=== PATIENT | female | born 1995 ===

== ENCOUNTER 2018-04-03 23:24 | Emergency (ER) | payer SELFPAY ==
--- NOTE | 2018-04-04 00:39 | OBHP ---
Datetime: 04/04/2018 00:33 IP Adm Impression: , intrauterine IP Admit Plan: Discharge home Admit Comment, IP Provider: @ 26.4 wks reports pnc in [place] uncompliated (no recrods) reprots r ight sided hip pain on and off and reprots needs a letter in regards to so she can apply fo r insurance and get prental care. pt dnie slof, vb, ctx, +FM. pt deneis any bowel or bladder complain ts. OB: P0 SURGICAL SCHEDULER: dnies PMH: dneis PSH: denies FHX: denies MEDS:PNV NKDA SHDX: negaive etoch/tobacc/durgs A/P G1P) @ 26.3 wks GA wiht likey sciatica -tyoenol prn pain -advsid stretching, exericse, warm shower -referral to clinic re: improtance of acre Pelvic Type - PN: Adequate Extremities - PN: Normal Abdomen - PN: Normal Back - PN: Normal Breast - PN: Not Done Lungs - PN: Normal Heart - PN: Normal Thyroid - PN: Not Done Neurologic - PN: Normal HEENT - PN: Normal General - PN: Normal Presentation-Admit: Vertex FHR - Baseline A Provider: 145 Membranes, Provider: Intact Contraction Comments Provider: none Gestation - Est Wks by US: 26.4 EGA AdmitDate IP: 26.3 Vital Signs Provider: Reviewed; Within Normal Limits IP Chief Complaint: Other NICHD Variability Prov Fetus A: Moderate 6-25bpm FHR Category Provider Fetus A: Category I Dilatation, Provider: 0 Effacement, Provider: 0 Station, Provider: -3 Genitourinary Exam: Normal DTRs - PN: Normal
== END 2018-04-04 00:45 | disposition home or self-care (01) ==
LOC: C.EROB 23:24
DX: O26.92 Pregnancy related conditions, unspecified, second trimester (principal); M25.551 Pain in right hip; Z3A.26 26 weeks gestation of pregnancy

== ENCOUNTER 2018-06-21 08:15 | Inpatient (IN) | payer MEDICAID ==
[2018-06-21 08:52] VITALS: BMI 26.8
[2018-06-21 09:54] LABS: BASO # 0.1 K/uL (0.0-0.2); BASO % 0.5 % (0.0-2.0); EOS # 0.1 K/uL (0.0-0.7); EOS % 0.8 % (0.0-4.0); HEMOGLOBIN 12.8 g/dL (11.0-16.0); LYMPH # 2.2 K/uL (1.0-4.3); LYMPH % 18.4 % (20.0-40.0); MEAN CELL VOLUME 85.7 fL (81.0-99.0); MEAN CORPUSCULAR HEMOGLOBIN 29.5 pg (27.0-31.0); MEAN CORPUSCULAR HGB CONC 34.4 g/dL (33.0-37.0); MEAN PLATELET VOLUME 8.5 fL (7.2-11.7); MONO # 0.7 K/uL (0.0-0.8); MONO % 5.5 % (0.0-10.0); NEUT # 8.8 K/uL (1.8-7.0); NEUT % 74.8 % (50.0-75.0); RBC 4.33 Mil/uL (3.80-5.20); RED CELL DISTRIBUTION WIDTH 13.5 % (11.5-14.5); WHITE BLOOD COUNT 11.8 K/uL (4.8-10.8)
[2018-06-21] MEDS ORDERED: Lactated Ringer's 1,000 ML IV ONE (10:30)
[2018-06-21] MEDS ORDERED: Bupivacaine HCl/FentaNYL Cit 100 ML EPI ONE (11:07)
--- NOTE | 2018-06-21 15:17 | OBHP ---
Datetime: 06/21/2018 10:00 IP Adm Impression: Term, intrauterine ; Intact Membranes IP Admit Plan: Admit to unit; Initiate labor protocol Admit Comment, IP Provider: 21 yo female G1 with an IUP at 37 5/7 weeks and presented with c/o of co ntractions since this AM and very painful and almost in tears, Admitted to adequate movement an d denied LOF or vaginal bleeding. Will admit in early labor and anticipate a vaginal delivery. Pelvic Type - PN: Adequate Extremities - PN: Normal Abdomen - PN: Normal Back - PN: Normal Breast - PN: Not Done Lungs - PN: Normal Heart - PN: Normal Thyroid - PN: Normal Neurologic - PN: Normal HEENT - PN: Normal General - PN: Normal Presentation-Admit: Vertex FHR - Baseline A Provider: 140 Membranes, Provider: Intact Contraction Comments Provider: 1-2 mins Gestation - Est Wks by US: 37 5/7 weeks EGA AdmitDate IP: 37.5 Vital Signs Provider: Reviewed; Within Normal Limits IP Chief Complaint: Uterine contractions NICHD Variability Prov Fetus A: Moderate 6-25bpm NICHD Accel Fetus A IP Provider: 10X10 FHR Category Provider Fetus A: Category I NICHD Decel Fetus A IP Provider: None Dilatation, Provider: 1-2 Effacement, Provider: 80 Station, Provider: -3 Genitourinary Exam: Normal DTRs - PN: Normal
[2018-06-21 15:20] LABS: ALB/GLOB RATIO 1.3 (1.0-2.1); ALBUMIN 3.9 g/dL (3.5-5.0); BLOOD UREA NITROGEN 5 mg/dL (7-17); GFR AFRICAN-AMERICAN > 60; GFR NON-AFRICAN AMERICAN > 60
[2018-06-21 15:21] LABS: ALT/SGPT 15 U/L (9-52); AST/SGOT 19 U/L (14-36)
[2018-06-21 15:26] LABS: SQUAMOUS EPITHIAL 4 /hpf (0-5); URINE BACTERIA RARE (<OCC); URINE BILIRUBIN NEGATIVE (NEGATIVE); URINE CLARITY Clear (Clear); URINE COLOR Yellow (YELLOW); URINE GLUCOSE (UA) NORMAL (Normal); URINE LEUKOCYTE ESTERASE NEG Leu/uL (Negative); URINE PROTEIN NEGATIVE (NEGATIVE); URINE UROBILINOGEN NORMAL mg/dL (0.2-1.0)
[2018-06-21 15:27] LABS: URINE BLOOD 2+ (NEGATIVE)
--- NOTE | 2018-06-21 15:45 | OBADHP ---
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 Denies MATA, BV or EP Will check labs and treat accordingly. Pelvic Type - PN: Adequate Extremities - PN: Normal Abdomen - PN: Normal Back - PN: Normal Breast - PN: Not Done Lungs - PN: Normal Heart - PN: Normal Thyroid - PN: Normal Neurologic - PN: Normal HEENT - PN: Normal General - PN: Normal Presentation-Admit: Vertex Amniotic Fluid Color, Provider: Clear Membranes, Provider: Bulging Contraction Comments Provider: 2-3 Vital Signs Provider: Reviewed; Within Normal Limits IP Chief Complaint: Uterine contractions NICHD Variability Prov Fetus A: Moderate 6-25bpm NICHD Accel Fetus A IP Provider: 10X10 NICHD Decel Fetus A IP Provider: None Dilatation, Provider: 2-3 Effacement, Provider: 100 Station, Provider: -2 Genitourinary Exam: Normal DTRs - PN: Normal EGA AdmitDate IP: 37.5 IP Adm Impression: Term, intrauterine ; Intact Membranes IP Admit Plan: Admit to unit; Initiate labor protocol Datetime: 06/21/2018 10:00 FHR - Baseline A Provider: 140 Gestation - Est Wks by US: 37 5/7 weeks FHR Category Provider Fetus A: Category I
--- NOTE | 2018-06-21 15:53 | OBPN ---
Datetime: 06/21/2018 14:35 IP Progress Impression Other: Slow Progression of labor IP Procedures: Artificial ROM; Scalp Electrode IP Progress Plan: Continue present management; Augmentation Contraction Comments Provider: Q 1-2 FHR - Baseline A Provider: 150-160 Presentation-Admit: Vertex IP Progress Note Comment: AROM wit cler fluid and scalp lead appied Anesthesia aware of Low Blood Pressure UC's spread out some what and will start Pitocin for augmentation of labor Hope for a vaginal Delivery Vital Signs Provider: Reviewed Vital Signs Provider Details: LOW BP after Epidural NICHD Accel Fetus A IP Provider: 10X10 FHR Category Provider Fetus A: Category I NICHD Variability Prov Fetus A: Moderate 6-25bpm Dilatation, Provider: 2-3 Effacement, Provider: 100 Station, Provider: -2 NICHD Decel Fetus A IP Provider: Variable Datetime: 06/21/2018 11:30 Membranes, Provider: Bulging Amniotic Fluid Color, Provider: Clear Datetime: 06/21/2018 10:00 Gestation - Est Wks by US: 37 5/7 weeks
[2018-06-21] MEDS ORDERED: Oxytocin 20 units in LR 2,000 ML IV ONE (16:04)
[2018-06-21] MEDS ORDERED: Sodium Citrate/Citric Acid 15 ml Sol ONE (16:04)
[2018-06-21] MEDS ORDERED: ceFAZolin IV 2 gm in Dextrose 2 GM/50 ML BAG IVPB ONE (16:04)
[2018-06-21] MEDS ORDERED: Oxytocin 30 UNIT 30 UNITS/500 ML BAG IV ONE ×2 (16:45→18:36)
[2018-06-21] MEDS ORDERED: Oxytocin 30 UNIT 30 UNITS/500 ML BAG IV SCH (17:00)
[2018-06-21] MEDS ORDERED: Lidocaine 2% MPF (5 ml) Inj ONE ×3 (17:12→18:02)
[2018-06-21] MEDS ORDERED: Benzocaine/Menthol 20%-0.5% Topical Spray (60 ml) TOP PRN (18:36)
[2018-06-21] MEDS ORDERED: Oxycodone/Acetaminophen 5/325 mg Tab PO PRN (18:36)
--- NOTE | 2018-06-21 19:14 | OBDS ---
DELIVERY PERSONNEL Delivery Doctor: Dr. Feliz Tanker Driver: Carole Freire RN Anesthesiologist: Dr. Swift Resident: Jonathon Andrade MATERNAL INFORMATION Delivery Anesthesia: Epidural Medications in Delivery: pitocin 30mu in 500LR Estimated Blood Loss (ml): 200 Placenta Cultured: No Maternal Complications: None Provider Comments: of a viable female from GIBRAN position and over an intact perineum. Apg ars 9_9 at 1 and 5 mins respectively and BW 5lbs, 15 oz. Cord next to baby's head and around baby's a rm x 1. Placenta delivered spontaneously and intact with 3 vessel cord. Cord Ph 7.3/ EBL 200 mls 2nd degree vaginal and Perineal tear repaired with 2-0 Vicryl and 2% Lidocaine for Local Aneshesia Pt and both tolerated the procedure well and remained in Stable and Satisfactory condition . LABOR SUMMARY EDC: 07/07/2018 00:00 No. Babies in Womb: 1 Attempted: No Labor Anesthesia: Epidural LABOR INFORMATION Onset of Labor: 06/21/2018 08:53 Complete Dilatation: 06/21/2018 17:12 Oxytocin: Augmentation Group B Beta Strep: Negative Reason Steroids Not Administered: Not Applicable MEMBRANES Membranes Rupture Method: Artificial Rupture of Membranes: 06/21/2018 14:27 Length of Rupture (hrs): 3.37 Amniotic Fluid Color: Bloody Amniotic Fluid Amount: Small Amniotic Fluid Odor: None STAGES OF LABOR Stage 1 hrs: 8 Stage 1 min: 19 Stage 2 hrs: 0 Stage 2 min: 37 Stage 3 hrs: 0 Stage 3 min: 8 Total Time in Labor hrs: 9 Total Time in Labor min: 4 VAGINAL DELIVERY Episiotomy: None Laceration Extension: Second Degree Laceration Type: Perineal; Vaginal Laceration Repair: Yes Laceration Repair Note: Laceration repaired with 2-0 Vicryl with 2% Lidocaine injection and no compl ications. Pt tolerated the procedure well. Initial Vag Sponge Count: 10 Initial Vag Sharps Count: 1 BABY A INFORMATION Infant Delivery Date/Time: 06/21/2018 17:49 Method of Delivery: Vaginal Born in Route : No : N/A Forceps: N/A Vacuum Extraction: N/A Shoulder Dystocia : No SHOULDER DYSTOCIA BABY A Infant Delivery Date/Time: 06/21/2018 17:49 PRESENTATION/POSITION BABY A Presentation: Cephalic Cephalic Presentation: Vertex Vertex Position: Left Occipital Anterior Breech Presentation: N/A PLACENTA INFORMATION BABY A Placenta Delivery Time : 06/21/2018 17:57 Placenta Method of Delivery: Spontaneous Placenta Status: Delivered SCORES BABY A Heart Rate 1 min: >100 bpm Resp Effort 1 min: Good Cry Reflex Irritability 1 min: Cough or Sneeze or Pulls Away Muscle Tone 1 min: Active Motion Color 1 min: Body Kermit, Extremities Blue SCORE 1 MIN: 9 Heart Rate 5 min: >100 bpm Resp Effort 5 min: Good Cry Reflex Irritability 5 min: Cough or Sneeze or Pulls Away Muscle Tone 5 min: Active Motion Color 5 min: Body Kermit, Extremities Blue SCORE 5 MIN: 9 INFANT INFORMATION BABY A Gestational Age at Delivery: 37.5 Gestational Status: Term Outcome : Liveborn Condition : Stable Sex: Female IDENTIFICATION/MEDS BABY A ID Band Number: [id number] ID Band Location: Left Leg; Left Arm Sensor Applied: Yes Sensor Number: [id number] Sensor Location : Cord Clamp WEIGHT/LENGTH BABY A Birthweight (gms): 2695 Weight (lb): 5 Infant Weight (oz): 15 Infant Length Inches: 18.50 Infant Length cms: 47.0 CORD INFORMATION BABY A No. Cord Vessels: 3 Nuchal Cord Other: loose cord around hand Cord Blood Taken: Yes Suction: Mouth; Nose ASSESSMENT BABY A Complications: None Physical Findings at Delivery: Within Normal Limits Physical Findings Other: Dr. Elhagaly present Infant Respirations: Appears Normal [employer] Consultant/ALS Called : No Infant Care By: Andres Herrera Transferred To: Remains with Mother
[2018-06-22 07:18] LABS: BASO % 0.4 % (0.0-2.0); EOS % 0.3 % (0.0-4.0); HEMOGLOBIN 11.1 g/dL (11.0-16.0); LYMPH % 14.9 % (20.0-40.0); MEAN CELL VOLUME 86.3 fL (81.0-99.0); MEAN CORPUSCULAR HEMOGLOBIN 29.5 pg (27.0-31.0); MEAN CORPUSCULAR HGB CONC 34.2 g/dL (33.0-37.0); MEAN PLATELET VOLUME 8.5 fL (7.2-11.7); MONO # 0.8 K/uL (0.0-0.8); MONO % 6.1 % (0.0-10.0); NEUT # 10.5 K/uL (1.8-7.0); NEUT % 78.3 % (50.0-75.0); RBC 3.76 Mil/uL (3.80-5.20); RED CELL DISTRIBUTION WIDTH 13.7 % (11.5-14.5); WHITE BLOOD COUNT 13.4 K/uL (4.8-10.8)
[2018-06-22] MEDS: Multiple Vitamins Tab PO SCH (09:19)
[2018-06-22 10:09] VITALS: RESP 18
--- NOTE | 2018-06-22 13:30 | OBPPN ---
Datetime: 06/22/2018 13:09 PP Pain Prov: Within normal limits PP Nausea Prov: Denies PP Flatus Prov: Yes PP BM Prov: Yes PP Breasts Prov: Normal PP Heart Prov: Normal PP Lungs Prov: Normal PP Abdomen/Uterus Prov: Normal PP Lochia Prov: Normal PP Vulva/Perineum Prov: Normal PP CVA Tenderness Prov: Normal PP Extremities Prov: Normal PP C/S Incision Prov: Not Applicable PP Progress Prov: Normal PP Comments Phys Exam Prov: Abdomen: Soft. Non distended. Fundus firm, mobile, non tender, 2 FB belo w umbilicus. Mild lochia rubra. Extremities: no calf tenderness, All other systems reviewed and are negative PP Impression Prov: Normal progression PP Plan Prov: Continue present management PP Progress Note Prov: Patient received in room 459, walking around. exclusively. Vag inal discomfort from laceration repair is improved with motrin. Denies dizziness, lightheadedness, na usea or vomiting. P.E.: as above. WD in NAD. Awake, alert, oriented to time, person and place. Pleasant and coope rative - PPD#1 H/H 11.1/32.4 Rh(+) Assessment: 22 y.o. P1, S/P with laceration repair. Afebrile, vital signs stable. H/H wnl. Cli nically stable. Plan: 1) Continue present managemnt 2) Anticipate vaginal delivery Vital Signs Provider PP: Reviewed; Within Normal Limits
[2018-06-23] MEDS: Multiple Vitamins Tab PO SCH (10:17)
[2018-06-23] MEDS ORDERED: Hydrocortisone 2.5% Rectal Cream(30 gm) PR SCH (12:00)
[2018-06-23 22:24] VITALS: BP 104/66; PULSE 99; TEMP 97.1; O2SAT 99
--- NOTE | 2018-06-23 22:55 | OBDCSUM ---
Datetime: 06/23/2018 14:59 Discharged to, Provider: Home Follow up at, Provider: Dr. Rubi Disch Instr Activity: Normal activity Disch Instr Diet: Regular Discharge Diet restrict Prov: none Discharge Instructions, Provider: Routine instructions given Discharge Diagnosis, Provider: Term Delivered Discharge Time: 06/23/2018 17:00 Follow up in weeks, Provider: 08/02/2018 Disch Referrals: None Contraception discussed, Prov: Yes Disch Activity Restrictions: No exercising; No lifting; No driving; Minimize walking; Minimize stair -climbing; No sexual activity; Nothing in vagina - [place], tampons, douche Discharge Comment, Provider: PPD # 2 S/P wit 2nd Degree perineal Laceration Stable and Satisfacroty condition and Recovery OK D/c home in Stable and Satisfactory condition Advised to contiue Pelvic rest, increase po and fiber intake in diet F/Up in Clinic in 6 weeks or prn Contraception after Delivery: Not Planning to Use
== END 2018-06-23 17:50 | disposition home or self-care (01) | DRG 373 ==
LOC: C.EROB 08:15 → C.4D 08:53 → C.4M 20:05
PROVIDERS: ADMIT Obstetrics & Gynecology; ATTEND Obstetrics & Gynecology
PROC: 10E0XZZ Delivery of Products of Conception, External Approach (ICD-10-PCS; principal; 2018-06-21)
PROC: 0KQM0ZZ Repair Perineum Muscle, Open Approach (ICD-10-PCS; 2018-06-21)
PROC: 10907ZC Drainage of Amniotic Fluid, Therapeutic from Products of Conception, Via Natural or Artificial Opening (ICD-10-PCS; 2018-06-21)
DX: O69.81X0 Labor and delivery complicated by cord around neck, without compression, not applicable or unspecified (principal); Z3A.37 37 weeks gestation of pregnancy; Z37.0 Single live birth; O70.1 Second degree perineal laceration during delivery; O75.89 Other specified complications of labor and delivery; R03.0 Elevated blood-pressure reading, without diagnosis of hypertension